=== PATIENT | female | born 1990 | race Caucasian/White ===

== ENCOUNTER 2021-06-18 14:10 | Emergency (ER) | payer OTHER, SELFPAY ==
--- NOTE | 2021-06-18 14:30 | RAD_ITS ---
STUDY: X-RAY - LEFT ANKLE REASON FOR EXAM: Female, 30 years old. Pain, fall TECHNIQUE: view(s) of the ankle. COMPARISON: None. FINDINGS: Normal visualized distal tibia .. Normal medial Normal tibiotalar articulation and ankle mortise. Normal visualized talus and calcaneus. The visualized subtalar, talonavicular, calcaneocuboid and tarsal articulations are normal. There is mild superficial soft tissue edema. There is a subtle fracture of the distal fibula. No other fracture is identified. RAD/Ankle min 3 Views IMPRESSION: Acute fracture of the distal fibula. Electronically Signed: Mary Bain MD at 14:53 EST Reading Location ID and State: [facility] / [place] Tel , Service support ,
--- NOTE | 2021-06-18 17:26 | EDS_ITS ---
DATE OF SERVICE 06/18/21 CHIEF COMPLAINT: Left ankle injury. HISTORY OF PRESENT ILLNESS: This patient is a 30-year-old female who presents with a left ankle injury that occurred 3 days ago. She states that she slipped on ice and everted her left ankle. She has been able to ambulate on her left ankle. She describes her pain as sharp, aching, and stabbing. The patient states that nothing makes it worse and nothing makes it better. The patient admits to some tingling over the top of her foot, but denies any tingling in her toes. The patient denies any weakness. PAST MEDICAL HISTORY: Denies. PAST SURGICAL HISTORY: Adenoidectomy. CURRENT MEDICATIONS: None. ALLERGIES: No known drug allergies. SOCIAL HISTORY: The patient denies any smoking. Patient admits to occasional alcohol use. Patient admits to occasional marijuana use. REVIEW OF SYSTEMS: GENERAL: The patient denies any fevers or chills. EYES: The patient denies blurry vision or diplopia. ENT: The patient denies any sore throat or rhinorrhea. CARDIOVASCULAR: Denies chest pain or palpitations. RESPIRATORY: The patient denies any shortness of breath or cough. GI: The patient denies any nausea or vomiting. : The patient denies dysuria or hematuria. MUSCULOSKELETAL: The patient denies any neck pain or back pain. Patient admits to left ankle pain as stated in the chief complaint. SKIN: The patient denies any rash or abscess. NEUROLOGIC: The patient denies any headache or weakness. ALLERGIES: The patient denies hives or swelling. PHYSICAL EXAMINATION: GENERAL: The patient is in no acute distress. VITAL SIGNS: Stable, afebrile. EXTREMITIES: There is tenderness, edema, and ecchymosis over the lateral aspect of the left ankle area. There is also some ecchymosis over the dorsum of the left foot. There is no bony crepitus or step- off noted. There is no tenderness over the proximal fibula. There is no tenderness over the fifth metatarsal. There is no obvious deformity. Range of motion was limited in all motions of the left ankle secondary to pain. There is a 2+ pedal pulse noted. Sensation intact to light touch in all digits. Capillary refill less than 2 seconds in all digits. Strength is 5/5 bilaterally in lower extremities. DIAGNOSTIC DATA: X-rays of the left ankle obtained, 3 views. On my interpretation, there is a nondisplaced fracture of the left distal fibula. There is moderate soft tissue swelling. The radiologist also interpreted the x- rays and agrees. EMERGENCY DEPARTMENT COURSE AND MEDICAL DECISION MAKING: The patient was given a dose of [place] here. IMPRESSION: Acute fracture of left distal fibula. DISPOSITION/PLAN: The patient was given a prescription for [place]. The patient was given a walking boot. The patient was instructed to ice and elevate the left ankle. The patient was given a referral for orthopedics. The patient was instructed to return if worse in any way. The patient understood and was agreeable with the plan. All questions were answered. The patient is discharged in stable condition.
== END 2021-06-18 18:00 | disposition home or self-care (01) ==
LOC: ED 19:46
PROVIDERS: Emergency Provider Emergency Medicine; PCP Obstetrics & Gynecology Gynecology; Visit Provider Emergency Medicine
DX: S82.832A Other fracture of upper and lower end of left fibula, initial encounter for closed fracture (principal); W00.0XXA Fall on same level due to ice and snow, initial encounter
CPT/HCPCS: 73610; 99284

== ENCOUNTER 2023-02-25 23:35 | Inpatient (IN) | payer OTHER, SELFPAY ==
[2023-02-25 23:31] VITALS: BP 161/103; PULSE 83; TEMP 37
[2023-02-25 23:47] VITALS: BP 155/101; PULSE 74
[2023-02-26] VITALS (224 sets, daily range): BP systolic 110–173; BP diastolic 65–100; PULSE 61–109; RESP 14–18; TEMP 36.1–37.2; O2SAT 86–100; BMI 27.5
[2023-02-26] MEDS: Lactated Ringers 1,000 ML 50 ML IV
[2023-02-26 01:02] LABS: Protein, Urine (Random) 34.6 mg/dL (<11.9); Protein:Creat Ratio 315 mg/g CRE (0-200)
[2023-02-26 01:02] LABS: Bedside Glucose 93 mg/dL (74-106)
[2023-02-26 01:04] LABS: Amphetamine Urine VISTA NEGATIVE (<1000 ng/mL); Barbiturate Urine VISTA NEGATIVE (< 200 ng/mL); Benzodiazepine Urine VISTA NEGATIVE (< 200 ng/mL); Cocaine Urine VISTA NEGATIVE (< 300 ng/mL); Ecstacy Urine VISTA NEGATIVE (< 500 ng/mL); Methadone Urine VISTA NEGATIVE (< 300 ng/mL); PCP Urine VISTA NEGATIVE (< 25 ng/mL); THC Urine VISTA NEGATIVE (< 50 ng/mL); Vista UDS pH Range 5
[2023-02-26 01:08] LABS: AST(SGOT) 28 U/L (15-37); Alanine Aminotransfer ALT/SGPT 25 U/L (13-56); Creatinine, Serum 0.67 mg/dL (0.55-1.02); EST Glomerular Filtration Rate 107 mL/min (>60); Est Glom Filt Rate - Afr Amer 130 mL/min (>60); Uric Acid 6.5 mg/dL (2.6-6.0)
[2023-02-26 01:16] LABS: ROM Internal Control Test YES-OK TO RESULT pt. (Internal QC); ROM Patient Test Negative (Negative); Record Kit Lot#, ROM+ K1409
[2023-02-26 01:18] LABS: Absolute Lymphocyte Count 2.03 X10^3/uL (0.83-4.51); Absolute Neutrophil Count 5.8 X10^3/uL (2.0-7.7); Basophil# 0.02 X10^3/uL; Basophil% 0.2 % (0-1); Eosinophil# 0.05 X10^3/uL; Eosinophils% 0.6 % (0-5); Lymphocyte # 2.03 X10^3/ul (0.83-4.51); Lymphocyte % 23.9 % (19-41); Mean Corp Hgb Conc 32.4 g/dL (32-36); Mean Corpuscular Hgb 28.3 pg (27.0-32.0); Mean Corpuscular Volume 87.4 fL (81-99); Mean Platelet Vol. 11.5 fl (6.2-12.0); Monocyte# 0.59 X10^3/uL; Monocyte% 6.9 % (0-10); NRBC Flagged by Analyzer 0 % (0-5); Neutrophil # 5.78 X10^3/uL (2.7-7.7); Platelet Count 221 K/mm3 (150-450); RBC Distribution Width CV 13.4 % (11.6-14.6); RBC Distribution Width SD 42.5 fl (35.1-43.9); Red Blood Count 3.89 M/mm3 (4.2-5.4); White Blood Count 8.5 K/mm3 (4.4-11.0)
[2023-02-26] MEDS: Oxytocin 15 Units/NS 250ml 15 UNITS/250 ML IV.SOLN 2 UNITS IV (01:32)
[2023-02-26 01:51] LABS: Mucous, Urine 0 SEEN /hpf (<or=2+); Red Blood Cells-Urine 0 SEEN /hpf (0-5)
--- NOTE | 2023-02-26 01:58 | HP.PCM.OB_ITS ---
HPI - General General Date of Admission: 02/25/23 Date of Service: 02/26/23 Chief Complaint: LOF HPI Narrative CHRISTINE RAMOS, is a 32 F who presents at 41+ wk gestation with possible lof. No vaginal bleeding or contractions. Good movement. She denies headache, vision changes, right upper quadrant pain, nausea, vomiting. She has been receiving care with a blasting clay miner. She reports having a first trimester ultrasound, as well as an anatomy ultrasound that showed a marginal cord insertion. Other than ultrasound she has received no lab work or GBS in the . She was planning for home . She states her back tender insulation board told her about a month ago that her blood pressures were elevating. PFSH PFSH Medical History no medical history Home Medications folic acid 0.8 mg capsule (FA-8) 800 mcg PO DAILY 02/26/23 [History Last Taken 02/25/23] Allergy/AdvReac Type Severity Reaction Status Date / Time No Known Allergies Allergy Verified 02/26/23 01:52 Social History Smoking Status: Never smoker History Elective abortions Hx Para 1 Spontaneous abortions Hx # Term Pregnancies Ectopic pregnancies Hx # Pregnancies Multiple births # of living children NST FHR Rate Baby A Baseline: 120 Variability:: Moderate Accelerations:: 15 x 15 Decelerations:: None NST Reactive:: Yes FHR Category:: Category I Uterine Activity:: irregular ctx's Vital Signs Vital Signs Vital Signs: 02/25/23 23:31 02/25/23 23:31 02/25/23 23:47 Temperature Temperature Source Pulse Rate 83 Blood Pressure 161/103 H 155/101 H BP Systolic 161 155 BP Diastolic 103 101 Pulse Ox 02/25/23 23:47 02/25/23 23:31 02/25/23 23:31 Temperature 98.6 F Temperature Source Temporal Pulse Rate 74 Blood Pressure BP Systolic BP Diastolic Pulse Ox 02/26/23 00:01 02/26/23 00:01 02/26/23 00:03 Temperature Temperature Source Pulse Rate 77 Blood Pressure 138/92 H BP Systolic 138 BP Diastolic 92 Pulse Ox 100 02/26/23 00:03 02/26/23 00:17 02/26/23 00:17 Temperature Temperature Source Pulse Rate 78 75 Blood Pressure 155/100 H BP Systolic 155 BP Diastolic 100 Pulse Ox 02/26/23 00:32 02/26/23 00:32 02/26/23 00:57 Temperature Temperature Source Pulse Rate 85 Blood Pressure 155/100 H 148/88 H BP Systolic 155 148 BP Diastolic 100 88 Pulse Ox 02/26/23 00:57 02/26/23 00:57 02/26/23 00:57 Temperature Temperature Source Temporal Pulse Rate 80 80 Blood Pressure BP Systolic BP Diastolic Pulse Ox 02/26/23 00:57 02/26/23 00:57 02/26/23 01:36 Temperature 97.5 F L Temperature Source Pulse Rate Blood Pressure 155/85 H BP Systolic 155 BP Diastolic 85 Pulse Ox 98 02/26/23 01:36 Temperature Temperature Source Pulse Rate 74 Blood Pressure BP Systolic BP Diastolic Pulse Ox Weight Weight: 170 lb 9.6 oz Body Mass Index (BMI) 27.5 Labs Labs Labs: Blood Type A POSITIVE Antibody Screen NEGATIVE Hct 34.0 % (37-47) L Hgb 11.0 g/dL (12.0-15.0) L Syphilis Total Ab Pending Rubella IgG Antibody Pending Hep Bs Antigen Pending HIV 1&2 Antibody Pending Group B Strep DNA Pending Assessment & Plan (1) 41 weeks gestation of : PLAN: Admit for induction of labor for preeclampsia without severe features. Patient had an isolated severe range blood pressure, followed by mild range blood pressures. She has no symptoms of preeclampsia at this time. Pre e work- up was unremarkable except an elevated protein creatinine ratio. Discussed with patient if she has another severe range blood pressure will start magnesium for seizure prophylaxis. Labetalol hypertensive protocol will be initiated if patient has another severe range blood pressures well. Cervix 3 cm on admission and start Pitocin per protocol. Patient plans unmedicated . She has received no care in this and was planning on a home with a blasting clay miner. Obtain panel, bedside blood sugar, and GBS on admission. The patient is agreeable to an induction with Pitocin at this time. ROM negative. Pelvis adequate and expected EFW < 4500 g. Anticipate a vaginal delivery. (2) No care in current : (3) Pre-eclampsia:
[2023-02-26 02:13] LABS: Color, Urine Yellow (Yellow); Glucose, Dipstick Normal (Normal); Ketone-Dipstick Negative (Negative); Leukocyte Esterase-Dipstick 500 /ul (Negative); Nitrite-Dipstick Negative (Negative); Occult Blood-Urine 10 /ul (Negative); Protein-Dipstick 30 mg/dl (Negative); Specific Gravity, Urine 1.015 (1.002-1.030); Urine Bilirubin Dipstick Negative (Negative); Urine Clarity Clear (Clear); Urine Urobilinogen Normal (Normal)
[2023-02-26 02:13] LABS: Rubella IgG Reactive (Nonreactive); Syphilis Antibodies Non-reactive
[2023-02-26 02:21] LABS: Bacteria 1+ /hpf (None Seen); Squamous Epithelial Cells - UA 5-10 SEEN /hpf (5-10); White Blood Cells 25-50 SEEN /hpf (0-5)
[2023-02-26 02:27] LABS: HIV - WCH Non-Reactive (Nonreactive); Hepatitis B Surface Antigen Non-Reactive (Nonreactive); Hepatitis C Antibody Non-Reactive (Nonreactive)
[2023-02-26 03:26] LABS: Group B Strep DNA By PCR POSITIVE (Negative); Probe Check PASS
[2023-02-26] MEDS: Penicillin G Pot 5,000,000 UNITS in 0.9% Normal Saline (100mL MB+) 100 ML 150 UNITS IV (04:09)
[2023-02-26] MEDS: Magnesium Sulfate 4gm/100mL 4 GM/100 ML IV.SOLN. IV (06:26)
[2023-02-26] MEDS: Magnesium Sulfate 20 GM/500 ML BAG IV ×2 (06:46→16:28)
[2023-02-26] MEDS: Penicillin G 3,000,000 Units 50 ML 100 UNITS IV ×2 (08:29→13:25)
[2023-02-26] MEDS: fentaNYL 100 MCG/2 ML Ampul IV (11:38)
[2023-02-26] MEDS: LACTATED RINGERS 500 ML 999 ML IV (11:55)
[2023-02-26] MEDS: fentaNYL-bupivacaine (epidural) 100 ML BAG EPIDURAL ×2 (13:26→17:22)
--- NOTE | 2023-02-26 17:49 | PLAC_PTH ---
PATIENT: CHRISTINE RAMOS LOC: [facility] U#:[id number] AGE/SX: 32/F ROOM: [facility] RE02/25/[address]: Dr. Aby Beach DO : 1990 BED: 1 DIS: 02/28/2023 SPEC #: [id number] RECD: 02/26/23 19:54 STATUS: LYN RE #: [id number] FADUMO: 02/26/23 17:[address]: Aby Beach DEPT: SURGICAL PATHOLOGY RECD BY: Kristine Velasquez ENTERED: 02/27/23 09:22 SP TYPE: PLACENTA OTHR DR: Dr. Madison Yap MD Tissues: Placenta, NOS Procedures: Surgery Specimen Level V HEADER OPERATION: Vaginal delivery PRE-OP DIAGNOSIS: Preeclampsia TISSUE SUBMITTED: Placenta MICROSCOPIC DIAGNOSIS Mtz placenta (564 gm): Umbilical cord - trivascular with no evidence of inflammation. Placental membranes - mild acute deciduitis. Placental disc - remote infarct, organizing foci of intraparenchymal hemorrhage, Colby-Jose change and mildly increased intraparenchymal fibrin plaques. AM:santos 03/01/2023 MICROSCOPIC DESCRIPTION Slides are reviewed. GROSS DESCRIPTION SPECIMEN: PLACENTA / CLINICAL INFORMATION: A. Weight: 4.255 kg B. Gestational Age: 41 weeks C. Sex: Male PLACENTAL WEIGHT (POST FIXATION): 564 gm PLACENTAL DIMENSIONS: 19.0 x 16.0 x 3.0 cm PLACENTAL SHAPE: Usual ovoid PLACENTAL WEIGHT FOR GESTATIONAL AGE: Over 99th percentile MEMBRANES - Present A. Insertion: Marginal B. Site of rupture from edge: 4.0 cm from edge of placental disc C. Color of membrane: Gaspar-saba D. Abnormalities: None UMBILICAL CORD - Present A. Color: Gaspar-saba B. Insertion: Eccentric and in two fragments. C. Length: 46.0 cm D. Diameter: 1.5 cm E. Number of vessels: Three F. Abnormalities: None PLACENTAL DISC - Present A. Color of surface: Gaspar-saba B. surface abnormalities: None C. Maternal cotyledons: Intact with minimal tears D. Attached retro placental clot: No clot E. Cut surface: Dark red and spongy F. Lesions: Three gaspar-white lesions ranging in size from 1.0 to 3.3 cm. G. Separate clot: 10.0 x 5.0 x 2.0 cm SECTIONS SUBMITTED: 1. Umbilical cord ( end notched) 2. Umbilical cord, placental end 3. Membrane roll 4. Placental disc, and maternal surfaces, lesion 5. Placental disc, and maternal surfaces, lesion 6. Placental disc, and maternal surfaces, lesion AM:santos 02/28/2023 TC:2 CPT: 31226
--- NOTE | 2023-02-26 18:14 | OP.PCM_ITS ---
Maternal Data Information Final ANITA: 02/19/23 Gestational age: 40 Vaginal Delivery Maternal Presentation Maternal Presentation: Medically Indicated Induction Type of Induction: Pitocin and Amniotomy Operative Information Date of Procedure: 02/26/23 Pre-Operative Diagnosis: labor, prolonged deceleration Post-Operative Diagnosis: same Surgery / Procedure Performed: Vacuum Assisted Vaginal Delivery (outlet) Type of Anesthesia: Epidural Special Medications: none Drain: Padilla to straight drain Estimated Blood Loss: 400 Time of Delivery: 17:49 Findings Description of Procedure: I arrived and the patient was complete and pushing. She had prolonged decelerations. She had a prolonged deceleration down to the 60. She was pushing with good effort but not had not made a lot of progress. There is minimal caput. Position was EARLENE. Pelvis was clinically adequate and estimated weight was less than 4500 g. Padilla catheter was in place. Epidural was done as patient did not really appreciate contractions. I discussed with the patient and her partner risk benefits and alternatives to trial of vacuum- assisted vaginal delivery and they desire to proceed. The vacuum was placed on the flexion point and the vacuum created 550 mmHg. I pulled with 1 contraction no pop offs to . As the head was delivering I remove the vacuum. The remainder the head was delivered in spontaneous pushing efforts. A vigorous male infant was delivered EARLENE over a second-degree geremias ayanna laceration. The remainder the was delivered with maternal pushing and gentle traction only in less than 15 seconds. The Pitocin infusion was initiated for active management of the third stage. The cord was clamped and cut after 1 minute. The was attended to by the waiting nursing staff. The placenta was delivered spontaneously and intact. The cervix and vagina were intact. The second-degree perineal laceration was repaired with 3-0 Vicryl Rapide suture in a running standard fashion. Sponge and needle counts were correct. A vaginal sweep was completed by me. Presentation: EARLENE Amniotic Membrane Rupture Type: Artificial Amniotic Fluid Description: Clear Placental Delivery Description: Spontaneous Placenta Disposition: Sent to Pathology Cord Vessel Description: 3 Vessels Cord Entanglement: None Cord Gases: ABG and VBG A Gender: Male (Martir) (1 minute): 8 (5 minute): 9 Delayed Cord Clamping: Yes Post Vaginal Delivery Medications Given After Delivery: IV Pitocin Episiotomy Description: None Laceration: 2nd degree Complication Complications: None
[2023-02-26] MEDS: Oxytocin 15 Units/NS 250ml 15 UNITS/250 ML IV.SOLN 83 UNITS IV (18:19)
[2023-02-26 20:09] LABS: Pathology Specimen OB SEE PATHOLOGY REPORT
[2023-02-26] MEDS: NIFEdipine 30 MG Tablet PO (20:12)
[2023-02-27] VITALS (17 sets, daily range): BP systolic 117–141; BP diastolic 74–90; PULSE 70–92; RESP 16–18; TEMP 36.3–36.9; O2SAT 97–99
[2023-02-27] MEDS: Magnesium Sulfate 20 GM/500 ML BAG IV ×2 (02:34→12:36)
[2023-02-27 06:06] LABS: Hemoglobin 10.6 g/dL (12.0-15.0); Mean Corp Hgb Conc 33.1 g/dL (32-36); Mean Corpuscular Hgb 28.8 pg (27.0-32.0); Mean Platelet Vol. 10.8 fl (6.2-12.0); Platelet Count 218 K/mm3 (150-450); RBC Distribution Width CV 13.3 % (11.6-14.6); RBC Distribution Width SD 41.9 fl (35.1-43.9); Red Blood Count 3.68 M/mm3 (4.2-5.4); White Blood Count 13.4 K/mm3 (4.4-11.0)
--- NOTE | 2023-02-27 10:52 | PCM.PN.OB ---
Subjective Subjective Denies headaches or blurry vision. States that she feels well. Objective Data Objective Data Vital Signs: Vital Signs Temp Pulse Resp BP Pulse Ox O2 Del Method 97.6 F L 85 16 123/81 H 97 Room Air 02/27/23 08:45 02/27/23 08:45 02/27/23 08:45 02/27/23 08:45 02/27/23 08:45 02/27/23 08:45 Oxygen Delivery Method Room Air Weight: 170 lb 9.6 oz Body Mass Index (BMI) 27.5 Intake & Output: Intake and Output for Last 24 Hours 02/25/23 02/26/23 02/27/23 23:59 23:59 23:59 Intake Total 2711.67 / 2975.17 1763.5 / 1763.5 Output Total 2700 / 2700 1999 Balance 11.67 / 275.17 -236.5 / -236.5 Lab / Micro Data 02/27/23 06:00 02/26/23 00:20 Labs: Laboratory Results - last 24 hr 02/27/23 06:00: WBC 13.4 H, RBC 3.68 L, Hgb 10.6 L, Hct 32.0 L, MCV 87.0, MCH 28.8, MCHC 33.1, RDW Std Deviation 41.9, RDW Coeff of Roya 13.3, Plt Count 218, MPV 10.8 Micro: Microbiology 02/26/23 00:06 Genital vaginal Chlamydia trachomatis (PCR) - Final 02/26/23 00:06 Genital vaginal Neisseria gonorrhoeae (PCR) - Final Physical Exam Const alert, oriented x3 and no apparent distress HEENT normocephalic GI soft to palpation, non-tender and non-distended GI Narrative: fundus firm, mid & below umbilicus Extremity normal to inspection and no calf tenderness Assessment & Plan (1) No care in current : QUALIFIERS: Trimester: third trimester Qualified Code(s): O09.33 - Supervision of with insufficient care, third trimester COMMENT: PPD#1 (2) Pre-eclampsia: QUALIFIERS: Trimester: third trimester Qualified Code(s): O14.93 - Unspecified pre-eclampsia, third trimester PLAN: Plan Continue magnesium [id number] Continue nifedipine Routine care
[2023-02-27] MEDS: NIFEdipine 30 MG Tablet PO (20:21)
[2023-02-28 01:40] VITALS: BP 120/77; PULSE 78; RESP 16; TEMP 36.6
--- NOTE | 2023-02-28 08:10 | PCM.PN.OB ---
Subjective Subjective Patient seen at bedside. Ambulating and voiding without difficulty. Denies headache, dizziness, CP, or SOB. Lochia decreasing. with minimal support. Desires discharge home today. Objective Data Objective Data Vital Signs: Vital Signs Temp Pulse Resp BP Pulse Ox O2 Del Method 97.8 F 78 16 120/77 97 Room Air 02/28/23 01:40 02/28/23 01:40 02/28/23 01:40 02/28/23 01:40 02/27/23 20:15 02/28/23 01:40 Oxygen Delivery Method Room Air Weight: 170 lb 9.6 oz Body Mass Index (BMI) 27.5 Intake & Output: Intake and Output for Last 24 Hours 02/26/23 02/27/23 02/28/23 23:59 23:59 23:59 Intake Total 2711.67 / 2975.17 3171.83 / 3171.83 Output Total 2700 / 2700 3350 / 3350 Balance 11.67 / 275.17 -178.17 / -178.17 Lab / Micro Data 02/27/23 06:00 02/26/23 00:20 Micro: Microbiology 02/26/23 00:06 Genital vaginal Chlamydia trachomatis (PCR) - Final 02/26/23 00:06 Genital vaginal Neisseria gonorrhoeae (PCR) - Final Physical Exam Const alert and no apparent distress General Appearance: cooperative and comfortable Exam Limitations: no limitations HEENT normocephalic Eyes General Eye: normal appearance of both eyes Neck full ROM General: normal visual inspection Chest Chest: symmetrical chest wall rise Resp normal respiratory effort and normal air movement Effort and Inspection: symmetric chest movement Auscultation: clear to auscultation bilaterally Cardio regular rate and regular rhythm GI normal to inspection, nondistended, normoactive bowel sounds Back/Spine normal ROM Extremity full ROM and no calf tenderness General Extremity: normal exam except as noted Skin no rashes or lesions noted Neuro CN's II-XII intact bilaterally Psych mental status grossly normal Assessment & Plan (1) Pre-eclampsia: QUALIFIERS: Trimester: third trimester Qualified Code(s): O14.93 - Unspecified pre-eclampsia, third trimester (2) Vacuum-assisted vaginal delivery: (3) Care and examination of lactating mother: PLAN: Plan PPD 2 VAVD Routine care support Blood pressures within normal limits D/C home today with follow up in office
--- NOTE | 2023-02-28 08:14 | DS.PCM_ITS ---
Providers Date of Admission: 02/25/23 Primary Care Physician: Dr. Madison Yap MD Reason For Visit: VAGINAL DELIVERY Diagnosis Discharge Diagnosis (1) Pre-eclampsia: Status: Acute Code(s): O14.90 - Unspecified pre-eclampsia, unspecified trimester Qualifiers: Trimester: third trimester Qualified Code(s): O14.93 - Unspecified pre- eclampsia, third trimester (2) Vacuum-assisted vaginal delivery: Status: Acute Code(s): Z37.9 - Outcome of delivery, unspecified (3) Care and examination of lactating mother: Status: Acute Code(s): Z39.1 - Encounter for care and examination of lactating mother Plan PPD 2 VAVD Routine care support Blood pressures within normal limits D/C home today with follow up in office Medications at Discharge Home Medications cotton root 02/26/23 folic acid 0.8 mg capsule (FA-8) 800 mcg PO DAILY 02/26/23 fulvic acid 02/26/23 nifedipine 30 mg tablet,extended release 24 hr 30 mg PO DAILY #30 tabs 02/28/23 Hospital Course Summary of Care Provided Minutes Spent on Discharge: 20 Hospital Course: Hospital course was uneventful Physical Exam Const alert and no apparent distress General Appearance: cooperative and comfortable Exam Limitations: no limitations HEENT normocephalic Eyes General Eye: normal appearance of both eyes Neck full ROM General: normal visual inspection Chest Chest: symmetrical chest wall rise Resp normal respiratory effort and normal air movement Effort and Inspection: symmetric chest movement Auscultation: clear to auscultation bilaterally Cardio regular rate and regular rhythm GI normal to inspection, nondistended, normoactive bowel sounds Back/Spine normal ROM Extremity full ROM and no calf tenderness General Extremity: normal exam except as noted Skin no rashes or lesions noted Neuro CN's II-XII intact bilaterally Psych mental status grossly normal Weight / BMI Weight Weight: 170 lb 9.6 oz Body Mass Index (BMI) 27.5 ABG / Lab / Microbiology Data 02/27/23 06:00 02/26/23 00:20 Microbiology: Microbiology 02/26/23 00:06 Genital vaginal Chlamydia trachomatis (PCR) - Final 02/26/23 00:06 Genital vaginal Neisseria gonorrhoeae (PCR) - Final D/C Instructions Discharge Diet: No restrictions Discharge Activity: Return to Normal Activity, May Shower and May Take a Tub Bath May resume sexual activity in: 4-6 weeks Weight Bearing Status: Weight bearing as tolerated Call your doctor if you observe: Fever of 101 or Higher, Inability to urinate, Using more than 1 pad per hour, Shortness of breath, Dizziness, Swelling in the ankles, Chest pain, Calf discomfort and Uncontrolled pain Please Follow Up With: Yuliya Bardales CNM When: NEEDS SEEN IN OFFICE EARLY NEXT WEEK FOR BP CHECK Meaningful Use Info Meaningful Use Diagnoses (Choose all that apply): None applicable Discharge Plan Admission Admit Date/Time: 02/25/23 23:35 Primary Reason for Your Visit: Laobr and Delivery Attending Provider: Aby Beach Primary Care Provider: Madison Yap Discharge Orders/Prescriptions Prescriptions: New nifedipine 30 mg Tablet Extended Release 24hr 30 mg PO DAILY Qty: 30 0RF No Action folic acid [FA-8] 0.8 mg capsule 800 mcg PO DAILY cotton root fulvic acid Referrals / Follow Up: Yuliya Bardales CNM [Med Staff - [facility]] - Madison Yap MD [Primary Care Provider] - Disposition Disposition (needs filled in before D/C Order can be placed): Home, Self Care
[2023-02-28 08:17] VITALS: BP 124/84; PULSE 67; RESP 15; TEMP 36.3; O2SAT 98
--- NOTE | 2023-02-28 11:10 | CASEMGMT ---
Social Work Assessment Labor and Delivery Unit Patient Address: [address] [place], [place] [address] [address] Phone number: [phone] Date of Referral: 02/26/23 Time of Referral:? 1848 Referred By: Lise Dobson Date of Intervention: ??02/28/23 Time of Intervention:? 1045 Reason for Referral:?Hx DUI, previous child adopted out Sw completed chart review and acknowledges social work consult entered due to social concerns entered above. Sw presented to bedside and introduced self to mother of baby (MOB- Isiah) and father of baby (FOB- Herbert). Sw explained reason for sw involvement and completed psychosocial assessment. History obtained from: medical records and mother of baby (MOB)?and FOB. Household composition: Parents report that currently residing in their home is MOB, FOB and now baby. Parents state that their housing is safe and adequate- no concerns at this time. Patient's parent/guardian status:? MOB states that she and FOB actually met about ten years ago, but started dating each other five years ago. [place] baby is FOB's first baby, but second for MOB. MOB states that her first baby she chose to adopt out because she was not ready to be a parent. MOB states that the adoption is open, however she does not wish to have a close relationship with the child because it is still hard. - No concerns of domestic violence or intimate partner violence. ? Medical History: ?MOB is 2, para-1, now 2. MOB received care with flooring salesperson during . MOB states that her goal was to have a home , however she did not feel as though something was right and presented to hospital. MOB stated that she was in a lot of pain and decided to get the epidural. MOB stated that a vacuum needed to be used to help baby deliver. MOB states that she will still follow with her flooring salesperson for follow up care. Baby boy, Martir Montiel was born weighing 9lb 6oz and his apgars were 8 and 9 at one and five minutes of life respectfully. MOB reports that she is and it is going well. MOB states that she has a breast pump for home. Educational Status:? Both parents graduated from high school, and have some college education. MOB graduated with a degree in [employer]. FOB obtained some college education but did not graduate. Financial Status: Both parents are gainfully employed outside of the home. VAISHNAVI works for a [email or web address] service and is able to take one week off of work. MANUEL works for [employer] and is able to take 8 weeks off of work. Supplies:?? Parents have obtained all necessary baby items for baby including: car seat, safe sleep space, clothes, diapers and wipes. Childcare/Caregiver(s):?MANUEL will be primary caregiver to baby during her maternity leave, along with VAISHNAVI when he is not at work. MANUEL states that she may be able to adjust her schedule so that they only need childcare a couple of days out of the week. Transportation:??Both parents have their drivers license and adequate transportation. Programs/Agencies Involved: None ??? Children Services/Legal Issues:??? No history of Children Services involvement. MANUEL is currently on probation due to a DUI she received in 2021. MANUEL states that it was her first offense, and she is on probation until next year. MANUEL has to call in daily for 90 days to report to the adult parole officer, and if the officer wants her to come in to do a urine screen MOB has to present to court to do one. MANUEL states that that part of probation lasts for another 30 days. Behavioral Health Issues: ??Mental Health History:?VAISHNAVI denies mental health history. MANUEL states that she has a history of anxiety and depression, was prescribed medication about 5 years ago, but has not needed it for a long time. MANUEL states that she did experience some depression following the of her first child, however that situation was drastically different to where she finds herself today. MANUEL states that her symptoms at that time included crying, guilt and depression. ?? Substance Use History: MOB with substane use history positive for alcohol. MOB denies any other substance use. ?? Family History:?Parents deny family history of addiction and mental health issues. ? Drug Screens: ??drug screen was negative for all substances. Family/Social Stressors:?Parents deny any issues or concerns at this time. Support Systems: Both sets of grandparents are supportive. MANUEL states that her mom and sister are also big supports for her. Both parents have friends that are supportive. Depression/Shaken Baby/Safe Sleeping:? Sw educated parents on signs and symptoms of baby blues and depression. Sw provided literature for parents to review on these topics. Sw also educated parents that MOB can be more susceptible to experiencing baby blues or depression/ anxiety due to her mental health history. Sw also informed parents that MOB may struggle with due to not having the that she anticipated having. Parents expressed understanding. Sw educated parents on shaken baby prevention and ABCs of safe sleep. Parents expressed understanding. ASSESSMENT:? MOB currently admitted due to labor and delivery of baby. MOB with legal history positive for DUI in 2021. MOB currently on probation and open about her current legal circumstances. MOB with positive supports and outlook on her mental health history. MOB and FOB receptive to sw involvement and support. PLAN:? MOB and baby to be discharged when medically ready. ?No other services requested or indicated. Bridgette Gonzalez, DENTAL EQUIPMENT REPAIRER, MEMBERSHIP ADMINISTRATOR
[2023-02-28 11:24] VITALS: BP 127/76; PULSE 99; RESP 16; TEMP 37; O2SAT 98
[2023-03-01 07:14] VITALS: TEMP 36.8
[2023-03-01 07:19] VITALS: BP 131/73; PULSE 88
[2023-03-01 07:20] VITALS: PULSE 93; O2SAT 97
== END 2023-02-28 12:25 | disposition home or self-care (01) | DRG 807 ==
LOC: WPOUT 23:36 → WP 23:36
PROVIDERS: Obstetrics & Gynecology; Admitting Provider Obstetrics & Gynecology; PCP Obstetrics & Gynecology Gynecology; Visit Provider Obstetrics & Gynecology
DX: O14.04 Mild to moderate pre-eclampsia, complicating childbirth (principal); Z37.0 Single live birth; O48.0 Post-term pregnancy; O76 Abnormality in fetal heart rate and rhythm complicating labor and delivery; O70.1 Second degree perineal laceration during delivery; Z3A.41 41 weeks gestation of pregnancy
CPT/HCPCS: 59025; 59050; 76815; 80307; 81001; 82565; 82570; 82962; 84112; 84156; 84450; 84460; 84550; 85025; 85027; 86703; 86762; 86780; 86803; 86850; 86900; 86901; 87340; 87491; 87591; 87653; 88307; 99221; J7120; G0378

== ENCOUNTER 2024-04-26 23:32 | Emergency (ER) | payer SELFPAY ==
[2024-04-26 23:33] VITALS: BP 170/92; PULSE 80; RESP 16; TEMP 36.8; O2SAT 97; BMI 22.1
--- NOTE | 2024-04-26 23:55 | EKG12_ITS ---
Test Reason : MHC Blood Pressure : */* mmHG Vent. Rate : 79 BPM Atrial Rate : 79 BPM P-R Int : 130 ms QRS Dur : 90 ms QT Int : 368 ms P-R-T Axes : 10 8 13 degrees QTcB Int : 421 ms Normal sinus rhythm Nonspecific T wave abnormality Abnormal ECG Confirmed by GARRETT VEGA, DAJUAN ([id number]), city editor DIEGO DELGADILLO ([id number]) on 04/29/2024 8:07:17 AM Referred By: Confirmed By: DAJUAN TUCKER MD
[2024-04-27 00:11] LABS: Absolute Lymphocyte Count 3.01 X10^3/uL (0.83-4.51); Absolute Neutrophil Count 3.6 X10^3/uL (2.0-7.7); Basophil# 0.05 X10^3/uL; Basophil% 0.7 % (0-1); Eosinophil# 0.13 X10^3/uL; Eosinophils% 1.8 % (0-5); Hematocrit 42.3 % (37-47); Hemoglobin 14.5 g/dL (12.0-15.0); Lymphocyte # 3.01 X10^3/ul (0.83-4.51); Lymphocyte % 40.8 % (19-41); Mean Corp Hgb Conc 34.3 g/dL (32-36); Mean Corpuscular Hgb 30.1 pg (27.0-32.0); Mean Corpuscular Volume 87.8 fL (81-99); Mean Platelet Vol. 9.4 fl (6.2-12.0); Monocyte# 0.47 X10^3/uL; Monocyte% 6.4 % (0-10); NRBC Flagged by Analyzer 0 % (0-5); Neutrophil % 48.8 % (47-70); Platelet Count 300 K/mm3 (150-450); RBC Distribution Width CV 11.6 % (11.6-14.6); RBC Distribution Width SD 37.3 fl (35.1-43.9); Red Blood Count 4.82 M/mm3 (4.2-5.4); White Blood Count 7.4 K/mm3 (4.4-11.0)
[2024-04-27 00:13] LABS: Anion Gap 4 (5-15); BUN 15 mg/dL (7-18); BUN/Creat Ratio 26.9 RATIO (10-20); Calcium,Total 9.2 mg/dL (8.5-10.1); Chloride 108 mmol/L (98-107); Creatinine, Serum 0.56 mg/dL (0.55-1.02); EST Glomerular Filtration Rate 132 mL/min (>60); Est Glom Filt Rate - Afr Amer 159 mL/min (>60); Estimated Creatinine Clearance 132.51 ml/min; Glucose 103 mg/dL (74-106); Potassium 3.8 mmol/L (3.5-5.1); Sodium Level 140 mmol/L (136-145)
[2024-04-27 00:20] LABS: Acetaminophen (Tylenol) Level < 2.0 ug/mL (10.0-30.0); Alcohol, Blood (Medical)-Serum < 3.0 mg/dL; Salicylate 1.9 mg/dL (2.8-20.0)
[2024-04-27 01:02] LABS: Internal QC Validated? YES +Cl - CLEAR BKGD; Pregnancy, Urine Negative Negative
[2024-04-27 01:08] LABS: Amphetamine Urine VISTA NEGATIVE (<1000 ng/mL); Barbiturate Urine VISTA NEGATIVE (< 200 ng/mL); Benzodiazepine Urine VISTA POSITIVE (< 200 ng/mL); Cocaine Urine VISTA NEGATIVE (< 300 ng/mL); Ecstacy Urine VISTA NEGATIVE (< 500 ng/mL); Methadone Urine VISTA NEGATIVE (< 300 ng/mL); PCP Urine VISTA NEGATIVE (< 25 ng/mL); THC Urine VISTA POSITIVE (< 50 ng/mL)
--- NOTE | 2024-04-27 01:13 | EDS_ITS ---
HPI History of Present Illness Chief Complaint: Suicidal Informant: patient and EMS Narrative Narrative: Patient is a 33-year-old female with recent diagnosis of depression. Reportedly the patient came home from work this evening and stated she was thi nking of harming herself in order to do this she bought Valium off the street. She states around 9:30 PM she took 1010 mg Valium and attempt to hurt herself and also began cutting her arms and legs. Reportedly she called her sister Aggie she took pills and then her sister called the police and the police and EMS arrived at her house. When they arrived she was awake and alert but with the intentional overdose and reported thoughts of self-harm she was brought to the ER for evaluation. Patient states she has never attempted to harm herself in the past and she has never had to be admitted to a psychiatric hospital [facility] Medical History Post depression Care and examination of lactating mother Vacuum-assisted vaginal delivery Pre-eclampsia No care in current 41 weeks gestation of Home Medications ?Medication ?Instructions ?Recorded ?Last Taken ?Type NK 04/26/24 Unknown History Allergy/AdvReac Type Severity Reaction Status Date / Time No Known Allergies Allergy Verified 04/26/24 23:33 Surgical History (Updated 02/26/23 @ 02:37 by Katharine Sanchez) H/O adenoidectomy Social History Smoking Status: Never smoker [facility] ED Constitutional Constitutional ED: Denies chills or fever(s) Eyes Eyes: Denies change in vision ENT ENT ED: Denies sore throat Cardiovascular Cardiovascular: Denies chest pain, palpitations or racing heartbeat Respiratory/Chest Respiratory/Chest: Denies cough or dyspnea Gastrointestinal Gastrointestinal: Denies abdominal pain, diarrhea, nausea or vomiting Genitourinary Genitourinary ED: Denies dysuria Musculoskeletal Musculoskeletal: Denies myalgias Integumentary Reports Abrasions Neurologic Neurologic: Denies headache(s) Psychiatric Psychiatric: Reports suicidal ideation and suicidal thoughts Hematologic/Lymphatic Hematologic/Lymphatic: Denies easy bleeding or easy bruising EXAM Physical Exam Const Vital Signs: 04/26/24 23:33 Temperature 98.2 F Temperature Source Oral Pulse Rate 80 Respiratory Rate 16 Blood Pressure 170/92 H Blood Pressure Mean 118 Pulse Ox 97 Oxygen Delivery Method Room Air Positive well nourished and well developed General Appearance ED: well developed HEENT HEENT Narrative: Normocephalic atraumatic Eyes EOMs intact bilaterally Eyes Narrative: Pupils are dilated and sluggish to respond to light consistent with reported values Neck supple Neck Narrative: No nuchal rigidity or meningeal signs Resp normal respiratory effort and clear to auscultation bilaterally Resp Narrative: No signs of respiratory distress Cardio regular rate and regular rhythm Rate: other Other Details: Regular rate and rhythm without murmurs rubs or gallop GI normal to inspection, nondistended, normoactive bowel sounds, non-tender, non- distended and no masses Auscultation: normoactive bowel sounds Palpation: soft Extremity Extremity Narrative: Patient has superficial abrasions to her left thigh and forearm consistent with her report of cutting this evening. The wounds are superficial and do not need closed and they have no signs of secondary infection. Otherwise remainder of the exam is normal Neuro oriented x3, CN's II-XII intact bilaterally and no sensory deficits noted Sensorium / Orientation: alert Motor Exam: strength 5/5 throughout Psych Psych Narrative: Patient has a depressed/flat affect with suicidal ideation Skin Skin Narrative: Superficial abrasions to the left forearm and thigh as documented above MDM MDM MDM Narrative Medical decision making narrative: Patient arrived to ER as she is slightly hypertensive but otherwise with stable vitals. She reportedly took 100 mg of valium that was not prescribed to her and had done this in an attempt to hurt herself. Secondary to this a medical workup was performed to ensure she is safe for evaluation by crisis center and potentially placement in a psychiatric center. Workup revealed benzodiazepines and cannabinoids consistent with what patient has reportedly taken. Otherwise she does not have alcohol aspirin or Tylenol present going against a secondary toxic ingestion. Lab work also shows no signs of secondary infection acute kidney injury or electrolyte abnormality. Poison control was contacted and recommend the patient be watched for 6 hours from the time of ingestion in order for medical clearance. As patient reported that her ingestion was approximately 9:30 PM she was washed until 3:30 AM. During this time she never had hypotension or respiratory distress or hypoxia and she remained awake and alert during the entire time. Therefore the patient was medically cleared and crisis center was contacted to evaluate the patient. After evaluating the patient they do agree that with her suicidal gesture as well as the fact that she had outbursts in the ER stating that she wished the valium would have worked and I wish I would have that she will require placement for safety and further care. The patient is medically cleared from emergency room standpoint for transfer/placement to psychiatric center History & Record Review Discussion w/independent historian: Patient Lab Data Attestation: I reviewed the patient's lab results. Labs: Laboratory Results - last 24 hr 04/26/24 04/27/24 23:49 00:32 WBC 7.4 RBC 4.82 Hgb 14.5 Hct 42.3 MCV 87.8 MCH 30.1 MCHC 34.3 RDW Std Deviation 37.3 RDW Coeff of Roya 11.6 Plt Count 300 MPV 9.4 Immature Gran % (Auto) 1.500 H Neut % (Auto) 48.8 Lymph % (Auto) 40.8 [place] % (Auto) 6.4 Eos % (Auto) 1.8 Baso % (Auto) 0.7 Absolute Neuts (auto) 3.6 Absolute Lymphs (auto) 3.01 Nucleated RBC % 0 Sodium 140 Potassium 3.8 Chloride 108 H Carbon Dioxide 28.0 Anion Gap 4 L BUN 15 Creatinine 0.56 Estim Creat Clear Calc 132.51 Est GFR (MDRD) Af Amer 159 Est GFR (MDRD) Non-Af 132 BUN/Creatinine Ratio 26.9 H Glucose 103 Calcium 9.2 Urine Test Negative Salicylates 1.9 L Urine Opiates Screen NEGATIVE Urine Methadone Screen NEGATIVE Acetaminophen < 2.0 L Ur Barbiturates Screen NEGATIVE Ur Phencyclidine Scrn NEGATIVE Ur Amphetamines Screen NEGATIVE MDMA (Ecstasy) Screen NEGATIVE U Benzodiazepines Scrn POSITIVE H Urine Cocaine Screen NEGATIVE U Cannabinoids Screen POSITIVE H Ur Drug Screen Comment Ethyl Alcohol < 3.0 Discharge Plan Triage Chief Complaint: Suicidal ED Provider: [facility] Dx/Rx/DC Orders Clinical Impression: Depression, Suicidal ideation, Valium overdose Prescriptions: No Action NK Primary Care Provider: Madison Yap Referrals: Madison Yap MD [Primary Care Provider] - Print Language: Russian Disposition Disposition: Psychiatric Hospital or Unit
--- NOTE | 2024-04-27 01:38 | ED.RN ---
Pt yelling at sitter stating she needs privacy and she is not pink slipped. This nurse into defuse situation. Pt complaining to not have any privacy, mad because she was never told she was pink slipped and she is sick of people listening to her conversations. This nurse explained that this nurse and PD had told pt she was pink slipped until further notice and that crisis had to come evaluate pt. Explained again that pt had to be observed until 0330 d/t meds that pt ingested and crisis can not be called until after that. Explained that d/t why pt was here that a sitter is required to sit in the room to be monitored at all times. Pt upset at this nurse. Pts dad and SO at bedside. This nurse explained that having visitors is a privilege and that they can be removed from the room if pt continues to be uncooperative. Pt resting in bed with sitter in room.
--- NOTE | 2024-04-27 03:24 | ED.RN ---
Pt began arguing with charge nurse about observation times and that everyone keeps telling the pt a different story about reason why she is here. Pt escalating with mom and sister in room, arguing with staff. Pt family asked to leave the room and no visitors allowed at this time d/t pt yelling and hospital policy. Explained to pt that no visitors will be allowed back until after crisis eval as long as pt is cooperative. This nurse into room and explained process of pink slip again and went through the process of waiting for crisis. Explained to pt that this nurse has told the pt numerous times the same information. Pt complaining that staff is changing their stories and people keep telling me different things. Pt expressing concerns of not felling herself and unable to process what is in her head. This nurse explained to pt that when crisis comes to speak to her that it is best to be 100% honest with them with how she is feeling. pt stating I legit wish that Valium would of worked and I would have killed myself. emergency dispatcher and charge nurse in room and witness to all communication between this nurse and pt. Explained this nurse has told pt the process numerous times along with the charge nurse. Pt requesting this nurse talk to family about no visitors. This nurse out to talk to family. Charge nurse was already talking to family. Pts mom yelling at the charge nurse about pts rights and that she should be allowed to visit. This nurse attempted to explain to pts family that we follow all polices per the hospital and the pink slip regulations. Pt mom yelling at staff and being irrational. Attempted to explain to mom that if her behavior continued she would be asked to leave the property. Pt mom yelling at staff again and security updated. Pt continuing to yell on phone to mom and yell at staff. Explained to pt that to have her phone is a privilege. Pt continuing to yell into phone at mom and down grade staff. Security at bedside and phone removed from pt and placed with belongings. PD and security at bedside.
--- NOTE | 2024-04-27 03:25 | ED.RN ---
While sitting with pt, pt begins to get upset about what time crisis is coming. She states she has been told several different things by several different people. This nurse and primary nurse ZIA Lowery attempt to explain to pt she has been told the same thing repeatedly. Pt becomes unable to be redirected or de-escalated. Explained to patient again that visitors and phone were a privilege and that if she was not able to gain control and act appropriately, she would lose said privileges. Pt begins asking for her dad to come back, that he will straighten this situation out. Pt again is unable to be redirected, visitors are sent to the waiting room. Attempted to explain to pt that per Dr. uDnlap, crisis would be called at 0330. Pt does not believe this nurse and asked to speak to Dr. Dunlap. Dr Dunlap to bedside and explained crisis would be called 0330. Shortly after pt asks for family members to come back. This nurse and Beverley informed pt that after crisis has done their evaluation, if her behavior remains appropriate, her visitors would be allowed back. While speaking with pt, pt is crying, stating I legit wish the valium would have worked and I wish that I would have killed myself. This nurse out to waiting room to inform family of same. Father and sister verbalize understanding. Mother asks for a second chance to go back. This nurse informed mother of policy and why visitors were not being permitted until pt has fully calmed. Mother becomes upset and starts yelling at this nurse. Beverley is also in waiting triage area talking to family, attempting to explain reasonings including patient and staff safety. Mother continues to voice how this is unfair and we are punishing her. Pt then calls mother on her phone and is upset. At this point, mother is escalating patient and pt is becoming more upset. Security informed that pt has now lost phone privileges and security removes phone from room. Pt and family attempting to communicate through windows on the triage doors, security to waiting room and informed family that they needed to remain in the waiting room.
--- NOTE | 2024-04-27 03:32 | ED.RN ---
CRISIS CALLED, CHART FAXED
--- NOTE | 2024-04-27 03:50 | NURSING ---
This Rn received phone call from the patients father requesting meeting to discuss what is going with patient in the ER. This RN met patients father, mother, sister, significant other in ED waiting room. Family discusses dislike of hospital policy and pink slip policy related to visitors and behavior escalation of patient. Visitors not allowed at this time due to escalation of behavior, yelling at staff. Family feels if the patient is in crisis they should be allowed to be with the patient. Pt's family reminded that crisis was called at 0330 and that as soon they came would have a better understanding of what will happen.
[2024-04-27 04:45] VITALS: BP 114/96; PULSE 69; RESP 18; O2SAT 98
[2024-04-27] MEDS: hydrOXYzine 50 MG/ML Vial IM (06:24)
--- NOTE | 2024-04-27 10:53 | ED.RN ---
THIS RN NOTED PT HAD SWEATSHIRT UNDERNEATH HER. WITH HELP OF RAILROAD REPAIRER . PT MOVED, SWEATSHIRT REMOVED AND BLANKET PLACED
[2024-04-27 10:57] VITALS: BP 118/67; PULSE 65; RESP 16; O2SAT 95
--- NOTE | 2024-04-27 17:39 | ED.RN ---
Patient and visitors explained by this RN she can only see them one at a time. Mom states why is that? RN explains to the patient she is finally sleeping and we don't want to escalate her at this time. Patient agreeable to see her dad at this time. Dad comes back out to waiting area. Patient is now requesting to see mom at this time.
[2024-04-27 18:00] VITALS: PULSE 87; RESP 18; TEMP 36.3; O2SAT 98
--- NOTE | 2024-04-27 18:05 | CM.ED ---
Social work: spout worker made phone contact with [facility] and spostephonew loly [facility] to get an update on placement. Blue stated that they are currently out of indigent funding so the only place they were able to refer patient to is [facility] and they are waiting to hear back. Blue reached out to [facility] and confirmed case is currently being reviewed by a doctor now to determine if they will accept patient or not. Blue to keep licensed clinical social worker updated as soon as placement is secured. Hailey García, POTTERY STRIPER, STOCK CONTROL CLERK
[2024-04-27] MEDS: Menthol/Lanolin/Calamine/Znox 113 GM Tube 1 APPLIC TOPICAL (18:17)
--- NOTE | 2024-04-27 19:30 | ED.RN ---
Per day shift charge nurse Jana, mother is currently in room. Per Jana she has already notified HRO and security that if mother becomes an issue, security/HRO is to remove her from hospital grounds and will issue a no trespass if necessary.
--- NOTE | 2024-04-27 19:34 | ED.RN ---
LATE ENTRY 0530 - Per patient request, family is updated with plan after meeting with crisis. Mother again voices frustration with visitors being removed from room. This nurse again attempts to explain policies with mom. Mom verbalized again that staff are making her daughter more in crisis by not allowing visitors. Attempted to explain escalation behaviors of patients, and that staff are attempting to regain control of situation for the safety of the patient, staff and department. Mother states well you don't know what you are doing. You people only take care of a very few of these patients so you are not qualified to handle these people. Informed mother that we deal with several patients with mental health complaints and suicidal attempts/thoughts, and that is why we have strict policies to ensure safety. Mother states you people need to review your policies as an organization because they cause more trauma and are unfair. This nurse again explains to mother reasons for safety and escalation of patients. Mother states she was not causing escalation. Explained to mother that patient was still escalating with mother present and her presence was unsuccessful at calming her down; and that when patient called mother, mother added to escalation of patient, hence why her phone was removed from the room. Father then added that they are just trying to get staff to see their point of few and hear their opinions. Validated and acknowledged feelings, verbalized understanding of why they feel frustrated. Stated to parents that staff are also asking the same of parents, that they understand and abide by hospital policy. Mother states I am done talking about this. I am over it. Information requested on [facility] where patient would be placed, information provided.
--- NOTE | 2024-04-27 20:46 | CM.ED ---
Electronic Scale Tester made phone contact with the Crisis Team again and spoke with Florinda who will try and get an update on status of acceptance or not from [facility] and will call high school social science teacher back. Hailey García, BANQUET COORDINATOR, BLOCKER AND CUTTER CONTACT LENS
--- NOTE | 2024-04-27 20:57 | CM.ED ---
Social Work: Felt Finishing Supervisor made phone contact with [facility] and spoke with Katie. Patient is accepted pending the last set of vitals to see if BP is lower. gathering worker will consult with doctor to see if new vitals can be obtained for patient. Hailey García, SHEEP HERDER, REAL ESTATE DIRECTOR
[2024-04-27 21:09] VITALS: BP 125/90; PULSE 84; RESP 16; TEMP 36.6; O2SAT 96
--- NOTE | 2024-04-27 21:20 | CM.ED ---
Social Work: Laborer [employer]roleum Refinery made phone contact with [facility] and spoke with Katie and provided most recent vitals. Accepting doctor: Dr. Taylor. Katie will reach out to ED nurse's station directly to arrange for transportation for in the morning. No other information needed at this time. Hailey García, PAINTING MANAGER, PIN MACHINE OPERATOR
--- NOTE | 2024-04-27 21:47 | CM.ED ---
Social Work: material requirements worker met with patient and updated patient on placement and was able to answer questions. Hailey García, ACQUISITION COST ESTIMATOR, VIDEO CAMERA OPERATOR
[2024-04-28 05:00] VITALS: BP 105/71; PULSE 65; RESP 16
[2024-04-28 06:08] LABS: Vista UDS pH Range 5
--- NOTE | 2024-04-28 11:07 | ED.RN ---
RIDE HERE. PT GIVEN HOSPITAL PHONE TO CALL S/O TO LET THEM KNOW SHE WA LEAVING. BELONGINGS GIVEN DIRECTLY TO TRANSPORT TEAM. PT CALM, COOPERATIVE
== END 2024-04-28 11:12 ==
PROVIDERS: Emergency Provider Emergency Medicine; PCP Obstetrics & Gynecology Gynecology; Visit Provider Emergency Medicine
DX: T42.4X2A Poisoning by benzodiazepines, intentional self-harm, initial encounter (principal); F53.0 Postpartum depression
CPT/HCPCS: 80048; 80143; 80179; 80307; 81025; 82077; 85025; 87811; 93005; 96372; 99285

== ENCOUNTER 2024-05-31 17:02 | Emergency (ER) | payer SELFPAY ==
[2024-05-31 17:03] VITALS: BP 150/86; PULSE 112; RESP 18; TEMP 36.8; O2SAT 100; BMI 23.3
[2024-05-31 17:06] VITALS: BP 150/86; PULSE 112; RESP 18; TEMP 36.8; O2SAT 100
--- NOTE | 2024-05-31 17:09 | EDS_ITS ---
<Statement entered by Jesus Quarles DO - 05/31/24 20:25> Patient was seen and examined with physician assistant real estate manager Laura All components of the history and physical confirmed and agreed. History of present illness and physical exam: Patient is a 33-year-old female with no known significant past medical history who presents to the emergency department with a concern of a spider bite on the back of her right thigh. States that she noted there was a small bump and thought this was a pimple however she states that she tried to pop it and it has gradually enlarged with redness and is tender to palpation. Patient states that she did some research and was concerned therefore she came here for the evaluation management. review of systems: Agree with above Physical exam: Agree with above MDM Patient is a 33-year-old female who presented to the emerged part with a chief complaint of concern for spider bite on the back of her right thigh. On the differential diagnose includes Melamin to spider bite, cellulitis, abscess. Once workup is obtained reviewed she will be reevaluated. I did a bedside ultrasound of the area and there was evidence of cobblestoning consistent with cellulitis however there was a small area of fluid collection noted therefore incision and drainage was performed by physician assistant real estate manager Laura Mcnulty noted above. Patient tolerated this well without any complications. She was placed on Bactrim and Keflex. She was encouraged to return with worsening purulent drainage/redness while on antibiotics. She is otherwise to follow-up with primary care physician outpatient setting. She is agreeable with this plan all question concerns answered she is discharged home in stable condition. Plan: Final impression: Right posterior thigh cellulitis Right posterior thigh abscess Disposition: Patient will be discharged home in stable condition Supervising attending attestation: Jesus Quarles D.O. [facility] History of Present Illness Chief Complaint: Bite Narrative Narrative: 33-year-old female thinks she has a spider bite on the back of her right thigh. She had a small bump she felt was a pimple on the right posterior thigh 3 days ago and tried to pop it. It gradually enlarged with redness, tenderness, and developed a central purple spot. She has no fever or chills. She is not diabetic or immunocompromised. [facility] Medical History Post depression Care and examination of lactating mother Vacuum-assisted vaginal delivery Pre-eclampsia No care in current 41 weeks gestation of Home Medications ?Medication ?Instructions ?Recorded ?Last Taken ?Type cephalexin 500 mg capsule 500 mg PO Q6 7 days #28 CAPSULES 05/31/24 Unknown Rx sulfamethoxazole 800 1 tab PO BID 7 days #14 tabs 05/31/24 Unknown Rx mg-trimethoprim 160 mg tablet (Bactrim DS) Allergy/AdvReac Type Severity Reaction Status Date / Time No Known Allergies Allergy Verified 05/31/24 17:03 Surgical History (Updated 02/26/23 @ 02:37 by Katharine Sanchez) H/O adenoidectomy Social History Smoking Status: Never smoker ROS ROS ED ROS Narrative Constitutional: Negative for fever, chills, malaise. GI: Negative for nausea, vomiting Skin: Positive for erythema. EXAM Physical Exam Narrative Exam Narrative: CONST: Patient sitting in no acute distress. EYES: Normal inspection. NECK: Normal inspection. RESP: No respiratory distress, CTAB. CVS: Regular rate and rhythm, no murmur, no gallop. SKIN: Erythematous warm indurated area about 3 x 3 cm right posterior upper thigh with central small purple eschar. Redness does not extend onto the buttock or perineum area. No lymphangitic streaking. EXTREMITIES: Normal appearance, no pedal edema. NEURO: Alert and answering questions appropriately. PSYCH: Normal affect. Const Vital Signs: 05/31/24 17:03 05/31/24 17:06 Temperature 98.2 F 98.2 F Temperature Source Oral Oral Pulse Rate 112 H 112 H Respiratory Rate 18 18 Blood Pressure 150/86 H 150/86 H Blood Pressure Mean 107 107 Pulse Ox 100 100 Oxygen Delivery Method Room Air Room Air MDM MDM MDM Narrative Medical decision making narrative: Patient has a cellulitic area on her right posterior thigh. There is a small central dark area and bedside ultrasound showed a tiny fluid collection under it. I anesthetized the area with 1% lidocaine and used an 11 blade scalpel to make a 1 cm incision. There was about half a cc of pus expressed. It is not large enough to require packing. I prescribed Keflex and Bactrim with first dose given in the department. I discussed return precautions and she was discharged in stable condition. Discharge Plan Triage Chief Complaint: Bite ED Midlevel Provider: Laura Adams ED Provider: Jesus Quarles Dx/Rx/DC Orders Clinical Impression: Cellulitis of right thigh, Abscess of right thigh Instructions: Cellulitis Dc Prescriptions: New cephalexin 500 mg capsule 500 mg PO Q6 7 Days Qty: 28 0RF sulfamethoxazole-trimethoprim [Bactrim DS] 800-160 mg tablet 1 tab PO BID 7 Days Qty: 14 0RF Primary Care Provider: Madison Yap Referrals: Madison Yap MD [Primary Care Provider] - Activity Restrictions/Additional Instructions: Complete all of the antibiotics as prescribed. Take Tylenol or ibuprofen for pain. Return if symptoms worsen such as significantly spreading redness, red streaking, fever, or if the area enlarges and you feel that it may need drained. Print Language: Armenian Disposition Disposition: Home, Self Care Discharge Date/Time: 05/31/24 17:54
[2024-05-31] MEDS: Smz/Tmp Ds Tablet 1 TABLET PO (17:35)
[2024-05-31] MEDS: Cephalexin 250 MG Capsule 500 MG PO (17:35)
== END 2024-05-31 17:54 | disposition home or self-care (01) ==
LOC: ED 17:50
PROVIDERS: Emergency Provider Emergency Medicine; PCP Obstetrics & Gynecology Gynecology; Visit Provider Emergency Medicine
DX: L03.115 Cellulitis of right lower limb (principal); L02.415 Cutaneous abscess of right lower limb
CPT/HCPCS: 10060; 99283